=== PATIENT | male | born 1940 | race Caucasian/White ===

== ENCOUNTER 2017-06-10 20:14 | Emergency (ER) | payer MEDICARE, BC ==
[2017-06-10 21:38] VITALS: BP 132/105
--- NOTE | 2017-06-10 22:02 | EDM.PDOC ---
ED HPI GENERAL MEDICAL PROBLEM - General Chief Complaint: Abdominal Pain Stated Complaint: PAIN RI GROIN AREA Time Seen by Provider: 06/10/17 22:02 Source of Information: Reports: Patient, Family, Old Records, RN Notes Reviewed History Limitations: Reports: No Limitations - History of Present Illness INITIAL COMMENTS - FREE TEXT/NARRATIVE: brought by his son, but seen with his who arrived later Chief complaint Right groin pain History of present illness 77-year-old male with history spinal stenosis, for 3 years has been experiencing intermittent right groin pain. Spell today was lasting over 6 hours to the point that he was crying at home which prompted the family to bring him here. His episodes last anywhere from 30 minutes to several hours they do not occur daily and its inconsistent what brings them on, sometimes they're brought on by eating sometimes by a bowel movement and sometimes by movement. Never associated with nausea vomiting or fever or urinary symptoms. Never any diarrhea associated with this. He is being scheduled an appointment at [facility] in July, presumably to evaluate his back but also hoping that this would also help elucidate why he is having groin pain. It is tender to touch the area. He has been prescribed Vicodin for but he doesn't take it because of concerns about addiction. Through his weight to be seen here today, his pain has subsided and is now quite tolerable and he would be able to sleep. Spinal stenosis primarily affects the left leg, causing numbness and sometimes that leg will give way and he'll fall has not involved the right leg. Right Lower Abdomen Pain Score (Numeric/FACES): 10 - Related Data Allergies Allergy/AdvReac Type Severity Reaction Status Date / Time No Known Allergies Allergy Verified 06/10/17 21:34 Home Meds: Home Meds Aspirin [Em Chewable Aspirin] 81 mg PO DAILY 07/13/13 [History] Lisinopril 10 mg PO DAILY 07/13/13 [History] Omeprazole 20 mg PO DAILY 07/13/13 [History] Propafenone HCl [Rythmol] 150 mg PO TID 07/13/13 [History] Hydrocodone/Acetaminophen [Lorcet 5-325 mg Tablet] 1 each PO Q4H PRN 06/10/17 [ History] Past Medical History - Past Health History Medical/Surgical History: Denies Medical/Surgical History HEENT History: Reports: Impaired Vision Other HEENT History: wear glasses Cardiovascular History: Reports: Afib Gastrointestinal History: Reports: Diverticulosis, GI Bleed Genitourinary History: Reports: Prostate Disorder Musculoskeletal History: Reports: Back Pain, Chronic Other Musculoskeletal History: spinal stenosis Neurological History: Reports: Vertigo Hematologic History: Reports: Blood Transfusion(s) Oncologic (Cancer) History: Reports: Prostate - Infectious Disease History Infectious Disease History: Reports: Chicken Pox, Measles, Mumps - Past Surgical History GI Surgical History: Reports: Colonoscopy, EGD, Hernia, Abdominal Male Surgical History: Reports: Prostatectomy Social & Family History - Family History Family Medical History: Noncontributory - Tobacco Use Smoking Status *Q: Never Smoker Second Hand Smoke Exposure: No - Caffeine Use Caffeine Use: Reports: Tea - Recreational Drug Use Recreational Drug Use: No ED ROS GENERAL - Review of Systems Review Of Systems: See Below Constitutional: Reports: No Symptoms HEENT: Reports: No Symptoms Respiratory: Reports: No Symptoms Cardiovascular: Reports: No Symptoms GI/Abdominal: Reports: Abdominal Pain (right groin) : Reports: No Symptoms Musculoskeletal: Reports: Back Pain Skin: Reports: No Symptoms Neurological: Reports: Numbness (left leg), Weakness (left leg) Psychiatric: Reports: Anxiety Hematologic/Lymphatic: Reports: No Symptoms Immunologic: Reports: No Symptoms ED EXAM, GI/ABD - Physical Exam Exam: See Below Exam Limited By: No Limitations General Appearance: Alert, Anxious, Mild Distress, Other (vital signs show modest elevation of blood pressure otherwise normal, blood pressure has improved during his stay here) Head: Atraumatic, Normocephalic Respiratory/Chest: No Respiratory Distress Cardiovascular: Normal Peripheral Pulses GI/Abdominal Exam: Normal Bowel Sounds, Soft, No Distention, Tender (right at the inguinal ligament but no discrete swelling could be felt) (Male) Exam: No Hernia Extremities: Normal Inspection, Non-Tender Neurological: Alert, Oriented, Normal Cognition Psychiatric: Anxious Skin Exam: Warm, Dry, Intact, Normal Color, No Rash Course - Vital Signs Last Recorded V/S: Last Vital Signs Temp 35.4 C 06/10/17 21:45 Pulse 68 06/10/17 21:45 Resp 16 06/10/17 21:45 BP 132/105 H 06/10/17 21:45 Pulse Ox 96 06/10/17 21:45 - Re-Assessments/Exams Free Text/Narrative Re-Assessment/Exam: 06/10/17 22:51 77-year-old male with recurrent right inguinal pain of uncertain cause. Differential diagnosis includes femoral hernia, lymphadenopathy, neuropathy, ligamentous or muscular strain, or other causes. Further evaluation with general surgery recommended No treatment or investigations recommended here as pain has improved and it had numerous investigations previously Departure - Departure Time of Disposition: 22:29 Disposition: DC/Tfer to [facility] Condition: Fair Clinical Impression: Chronic pain of right inguinal region - Discharge Information Instructions: Muscle Pain, Adult Referrals: Boris Foreman MD [Primary Care Provider] - Forms: ED Department Discharge Additional Instructions: groin or inguinal area pain, recurrent The fact that the pain is localized there suggests it could come from a localized pinched nerve, small internal hernia, muscle strain, scar tissue or otherlocal cause. General surgeon should be consulted with to assess the area. Spinal stenosis could contribute to the pain in the area as well so seeing a spine doctor is also recommended Return to emergency if he developed fever, vomiting, or prolonged pain you cannot manage at home
== END 2017-06-10 22:45 | disposition home or self-care (01) ==
LOC: JP.ED 20:14
DX: R10.31 Right lower quadrant pain (principal); G89.29 Other chronic pain; I48.91 Unspecified atrial fibrillation; Z90.79 Acquired absence of other genital organ(s); Z98.890 Other specified postprocedural states; Z79.82 Long term (current) use of aspirin; Z79.899 Other long term (current) drug therapy; Z85.46 Personal history of malignant neoplasm of prostate
CPT/HCPCS: 99283; 99284

== ENCOUNTER 2020-12-29 07:03 | Day surgery (SDC) | payer MEDICARE ==
[2020-12-29] MEDS ORDERED: Sodium Chloride 0.9% 10 ML Syringe FLUSH PRN (07:30)
[2020-12-29 08:58] VITALS: BP 145/82; PULSE 93
--- NOTE | 2020-12-29 12:57 | OR ---
DATE OF PROCEDURE: 12/29/2020 SURGEON: Priscilla Anaya MD POSTOPERATIVE CARE: Postoperative care will be provided mainly at the [address] [place] [address] [facility] in conjunction with [facility]. PREOPERATIVE DIAGNOSIS: Cataract, right eye. POSTOPERATIVE DIAGNOSIS: Cataract, right eye. PROCEDURE: Phacoemulsification with intraocular lens placement, right eye. ANESTHESIA: Topical and intracameral. ESTIMATED BLOOD LOSS: Minimal. COMPLICATIONS: None. PATHOLOGY SPECIMENS: None. SURGICAL FINDINGS: None. INDICATION FOR PROCEDURE: The patient is an 80-year-old male with history of a visually significant cataract in the right eye, which interfered with activities of daily living. This consisted of a nuclear sclerosis cataract. Following careful discussion of the risks, benefits and alternatives to cataract extraction with intraocular lens placement including blindness and , the patient elected to proceed, and informed, written consent was obtained prior to the procedure. DESCRIPTION OF THE PROCEDURE: The patient was previously identified, and a jasson placed above the right eye. All sources, including the patient, indicated that the right eye was the correct eye. The patient was subsequently taken to the operating room where standard monitors were applied. The patient was then prepped and draped in the usual sterile fashion for ophthalmic surgery. Attention was first directed at the 12 o'clock position where a paracentesis port was fashioned. Shugar solution followed by Viscoat was instilled into the eye. Attention was then directed to the 8:30 position where a triplanar incision was made in a near-clear manner using a keratome. A continuous capsulorrhexis was then made using a combination of the cystotome and Utrata forceps. Hydrodissection was achieved using a balanced salt solution, and the lens rotated nicely. Phacoemulsification was then done using a modified [id number] technique without complication. Phaco time was 7.10 CDE. The remaining cortex was removed using the irrigation/aspiration handpiece. Provisc was then instilled into the eye. A Technis lens, model DCB00, at 21.0 Diopters was then placed in the capsular bag using an [place] injector. The remaining viscoelastic was removed using the irrigation/aspiration forceps. All wounds were then checked and found to be watertight. The lid speculum and drapes were removed. Maxitrol ointment was placed in the patient's right eye, and the eye was shielded. The patient tolerated the procedure well. The patient was instructed to follow up tomorrow. All needle and sponge counts were correct at the end of the procedure. There were no surgical findings. Priscilla Anaya MD /[id number]
== END 2020-12-29 09:00 | disposition home or self-care (01) ==
LOC: JP.SDS 07:03
PROVIDERS: ATTEND Ophthalmology
DX: H25.11 Age-related nuclear cataract, right eye (principal); I10 Essential (primary) hypertension; I48.91 Unspecified atrial fibrillation; G89.29 Other chronic pain; M54.9 Dorsalgia, unspecified; Z85.46 Personal history of malignant neoplasm of prostate; Z98.890 Other specified postprocedural states
CPT/HCPCS: V2632

== ENCOUNTER 2021-01-12 07:35 | Day surgery (SDC) | payer MEDICARE ==
[2021-01-12] MEDS ORDERED: Sodium Chloride 0.9% 10 ML Syringe FLUSH PRN (08:00)
[2021-01-12 08:52] VITALS: BP 154/91; PULSE 96
--- NOTE | 2021-01-12 14:31 | OR ---
DATE OF PROCEDURE: 01/12/2021 SURGEON: Priscilla Anaya MD POSTOPERATIVE CARE: Postoperative care will be provided mainly at the [address] [place] [address] [facility] in conjunction with [facility]. PREOPERATIVE DIAGNOSIS: Cataract, left eye. POSTOPERATIVE DIAGNOSIS: Cataract, left eye. PROCEDURE: Phacoemulsification with intraocular lens placement, left eye. ANESTHESIA: Topical and intracameral. ESTIMATED BLOOD LOSS: Minimal. COMPLICATIONS: None. PATHOLOGY SPECIMENS: None. SURGICAL FINDINGS: None. INDICATION FOR PROCEDURE: The patient is an 81-year-old male with history of a visually significant cataract in the left eye, which interfered with activities of daily living. This consisted of a nuclear sclerosis cataract. Following careful discussion of the risks, benefits and alternatives to cataract extraction with intraocular lens placement including blindness and , the patient elected to proceed, and informed, written consent was obtained prior to the procedure. DESCRIPTION OF THE PROCEDURE: The patient was previously identified, and a jasson placed above the left eye. All sources, including the patient, indicated that the left eye was the correct eye. The patient was subsequently taken to the operating room where standard monitors were applied. The patient was then prepped and draped in the usual sterile fashion for ophthalmic surgery. Attention was first directed at the 12 o'clock position where a paracentesis port was fashioned. Shugar solution followed by Viscoat was instilled into the eye. Attention was then directed to the 8:30 position where a triplanar incision was made in a near-clear manner using a keratome. A continuous capsulorrhexis was then made using a combination of the cystotome and Utrata forceps. Hydrodissection was achieved using a balanced salt solution, and the lens rotated nicely. Phacoemulsification was then done using a modified [id number] technique without complication. Phaco time was 7.81 CDE. The remaining cortex was removed using the irrigation/aspiration handpiece. Provisc was then instilled into the eye. A Technis lens, model DCB00, at 24.0 Diopters was then placed in the capsular bag using an [place] injector. The remaining viscoelastic was removed using the irrigation/aspiration forceps. All wounds were then checked and found to be watertight. The lid speculum and drapes were removed. Maxitrol ointment was placed in the patient's left eye, and the eye was shielded. The patient tolerated the procedure well. The patient was instructed to follow up tomorrow. All needle and sponge counts were correct at the end of the procedure. There were no surgical findings. Priscilla Anaya MD /[id number]
== END 2021-01-12 09:00 | disposition home or self-care (01) ==
LOC: JP.SDS 07:35
PROVIDERS: ATTEND Ophthalmology
DX: H26.9 Unspecified cataract (principal); I10 Essential (primary) hypertension; E78.5 Hyperlipidemia, unspecified; I48.91 Unspecified atrial fibrillation
CPT/HCPCS: V2632

== ENCOUNTER 2021-10-26 10:27 | Inpatient (IN) | payer MEDICARE ==
[2021-10-26] MEDS ORDERED: Sodium Chloride 0.9% 10 ML Syringe FLUSH PRN (11:07)
[2021-10-26] MEDS ORDERED: fentaNYL 100 MCG/2 ML SDV IVPUSH ONE (11:08)
--- NOTE | 2021-10-26 11:10 | EDM.PDOC ---
ED HPI GENERAL MEDICAL PROBLEM - General Chief Complaint: General Stated Complaint: GROIN PAIN Time Seen by Provider: 10/26/21 11:03 Source of Information: Reports: Patient, Family, RN Notes Reviewed History Limitations: Reports: No Limitations - History of Present Illness INITIAL COMMENTS - FREE TEXT/NARRATIVE: 81-year-old gentleman presents emergency department day complaint of right groin pain, he states he has had intermittent right groin pain for the last year and a half however today while he was getting out of the car sudden onset of pain rates it 8 out of 10 it is located in the right groin he does not have any nausea vomiting no shortness of breath or chest pain, he has had surgery for hernia repair in the past Right Groin Pain Score (Numeric/FACES): 3 - Related Data Allergies Allergy/AdvReac Type Severity Reaction Status Date / Time No Known Allergies Allergy Verified 01/12/21 07:52 Home Meds: Home Meds Aspirin [Em Chewable Aspirin] 81 mg PO DAILY 07/13/13 [History] Lisinopril 10 mg PO DAILY 07/13/13 [History] Omeprazole 20 mg PO DAILY 07/13/13 [History] Propafenone [Rythmol] 150 mg PO TID 12/27/20 [History] Past Medical History HEENT History: Reports: Cataract, Impaired Vision Other HEENT History: wear glasses Cardiovascular History: Reports: Afib, Hypertension Gastrointestinal History: Reports: Diverticulosis, GI Bleed Genitourinary History: Reports: Prostate Disorder Musculoskeletal History: Reports: Back Pain, Chronic, Other (See Below) Other Musculoskeletal History: spinal stenosis, low back pain. right knee pain Neurological History: Reports: Vertigo Hematologic History: Reports: Blood Transfusion(s) Oncologic (Cancer) History: Reports: Prostate - Infectious Disease History Infectious Disease History: Reports: Chicken Pox, Measles, Mumps - Past Surgical History Head Surgeries/Procedures: Reports: None HEENT Surgical History: Reports: Cataract Surgery, Tonsillectomy Cardiovascular Surgical History: Reports: None GI Surgical History: Reports: Colonoscopy, EGD, Hernia, Abdominal Male Surgical History: Reports: Prostatectomy Neurological Surgical History: Reports: Lumbar Spine, Spinal Fusion Musculoskeletal Surgical History: Reports: Other (See Below) Other Musculoskeletal Surgeries/Procedures:: back screws Social & Family History - Family History Family Medical History: No Pertinent Family History - Tobacco Use Tobacco Use Status *Q: Never Tobacco User - Caffeine Use Caffeine Use: Reports: Coffee ED ROS GENERAL - Review of Systems Review Of Systems: See Below Constitutional: Reports: No Symptoms Respiratory: Reports: No Symptoms Cardiovascular: Reports: No Symptoms GI/Abdominal: Reports: Abdominal Pain, Flatus. Denies: Nausea ED EXAM, GENERAL - Physical Exam Exam: See Below Exam Limited By: No Limitations General Appearance: Alert, WD/WN, No Apparent Distress Respiratory/Chest: No Respiratory Distress, Lungs Clear, Normal Breath Sounds, No Accessory Muscle Use, Chest Non-Tender Cardiovascular: Regular Rate, Rhythm, No Murmur GI/Abdominal: Normal Bowel Sounds, Soft, Tender (Right groin area), Mass (Right groin area) Course - Vital Signs Last Recorded V/S: Last Vital Signs Temp 97.1 F 10/26/21 10:54 Pulse 78 10/26/21 13:29 Resp 15 10/26/21 12:33 BP 120/89 10/26/21 13:29 Pulse Ox 94 L 10/26/21 13:29 - Orders/Labs/Meds Orders: Active Orders 24 hr Category Date Time Status Peripheral IV Care [RC] . DIRECTED Care 10/26/21 11:08 Active Lactated Ringers [Ringers, Lactated] 1,000 ml Med 10/26/21 11:15 Active IV ASDIRECTED Sodium Chloride 0.9% [Saline Flush] Med 10/26/21 11:07 Active 10 ml FLUSH ASDIRECTED PRN Peripheral IV Insertion Adult [OM.PC] Urgent Oth 10/26/21 11:07 Ordered Medication Orders Lactated Ringer's (Ringers, Lactated) 1,000 mls @ 500 mls/hr IV ASDIRECTED [facility] Last Admin: 10/26/21 11:22 Dose: 500 mls/hr Documented by: FITZASH Sodium Chloride (Sodium Chloride 0.9% 10 Ml Syringe) 10 ml FLUSH ASDIRECTED PRN PRN Reason: Keep Vein Open Labs: Laboratory Tests 10/26/21 10/26/21 10/26/21 Range/Units 11:23 11:23 11:23 WBC 6.2 (4.5-11.0) K/uL RBC 3.71 L (4.30-5.90) M/uL Hgb 12.0 (12.0-15.0) g/dL Hct 36.4 L (40.0-54.0) % MCV 98 (80-98) fL MCH 32 H (27-31) pg MCHC 33 (32-36) % Plt Count 236 (150-400) K/uL Neut % (Auto) 53.5 (36-66) % Lymph % (Auto) 36.2 (24-44) % [place] % (Auto) 7.1 H (2-6) % Eos % (Auto) 2.7 (2-4) % Baso % (Auto) 0.5 (0-1) % Sodium 147 (140-148) mmol/L Potassium 3.2 L (3.6-5.2) mmol/L Chloride 108 (100-108) mmol/L Carbon Dioxide 30 (21-32) mmol/L Anion Gap 12.2 (5.0-14.0) mmol/L BUN 16 (7-18) mg/dL Creatinine 0.9 (0.8-1.3) mg/dL Est Cr Clr Drug Dosing 63.28 mL/min Estimated GFR (MDRD) > 60 (>60) Glucose 110 H (74-106) mg/dL Lactic Acid 1.3 (0.4-2.0) mmol/L Calcium 8.0 L (8.5-10.1) mg/dL Total Bilirubin 0.5 (0.2-1.0) mg/dL AST 25 (15-37) U/L ALT 21 (12-78) U/L Alkaline Phosphatase 94 (46-116) U/L Total Protein 6.2 L (6.4-8.2) g/dL Albumin 3.5 (3.4-5.0) g/dL Globulin 2.7 (2.3-3.5) g/dL Albumin/Globulin Ratio 1.3 (1.2-2.2) Urine Color (YELLOW) Urine Appearance (CLEAR) Urine pH (5.0-8.0) Ur Specific [place] (1.008-1.030) Urine Protein (NEGATIVE) mg/dL Urine Glucose (UA) (NEGATIVE) mg/dL Urine Ketones (NEGATIVE) mg/dL Urine Occult Blood (NEGATIVE) Urine Nitrite (NEGATIVE) Urine Bilirubin (NEGATIVE) Urine Urobilinogen (0.2-1.0) EU/dL Ur Leukocyte Esterase (NEGATIVE) Urine RBC (0-5) Urine WBC (0-5) Ur Epithelial Cells Amorphous Sediment Urine Bacteria Urine Mucus 10/26/21 Range/Units 12:28 WBC (4.5-11.0) K/uL RBC (4.30-5.90) M/uL Hgb (12.0-15.0) g/dL Hct (40.0-54.0) % MCV (80-98) fL MCH (27-31) pg MCHC (32-36) % Plt Count (150-400) K/uL Neut % (Auto) (36-66) % Lymph % (Auto) (24-44) % [place] % (Auto) (2-6) % Eos % (Auto) (2-4) % Baso % (Auto) (0-1) % Sodium (140-148) mmol/L Potassium (3.6-5.2) mmol/L Chloride (100-108) mmol/L Carbon Dioxide (21-32) mmol/L Anion Gap (5.0-14.0) mmol/L BUN (7-18) mg/dL Creatinine (0.8-1.3) mg/dL Est Cr Clr Drug Dosing mL/min Estimated GFR (MDRD) (>60) Glucose (74-106) mg/dL Lactic Acid (0.4-2.0) mmol/L Calcium (8.5-10.1) mg/dL Total Bilirubin (0.2-1.0) mg/dL AST (15-37) U/L ALT (12-78) U/L Alkaline Phosphatase (46-116) U/L Total Protein (6.4-8.2) g/dL Albumin (3.4-5.0) g/dL Globulin (2.3-3.5) g/dL Albumin/Globulin Ratio (1.2-2.2) Urine Color Yellow (YELLOW) Urine Appearance Clear (CLEAR) Urine pH 7.5 (5.0-8.0) Ur Specific [place] 1.020 (1.008-1.030) Urine Protein Negative (NEGATIVE) mg/dL Urine Glucose (UA) Negative (NEGATIVE) mg/dL Urine Ketones Negative (NEGATIVE) mg/dL Urine Occult Blood Negative (NEGATIVE) Urine Nitrite Negative (NEGATIVE) Urine Bilirubin Negative (NEGATIVE) Urine Urobilinogen 1.0 (0.2-1.0) EU/dL Ur Leukocyte Esterase Negative (NEGATIVE) Urine RBC Not seen (0-5) Urine WBC 0-5 (0-5) Ur Epithelial Cells Not seen Amorphous Sediment Rare Urine Bacteria Not seen Urine Mucus Not seen Meds: Medications Generic Name Dose Route Start Last Admin Trade Name [place] PRN Reason Stop Dose Admin Lactated Ringer's 1,000 mls @ 500 mls/hr 10/26/21 11:15 10/26/21 11:22 Ringers, Lactated IV 500 mls/hr ASDIRECTED DARLENE Administration Sodium Chloride 10 ml 10/26/21 11:07 Sodium Chloride 0.9% 10 Ml Syringe FLUSH ASDIRECTED PRN Keep Vein Open Discontinued Medications Generic Name Dose Route Start Last Admin Trade Name Freq PRN Reason Stop Dose Admin Fentanyl 50 mcg 10/26/21 11:08 10/26/21 11:26 Fentanyl 100 Mcg/2 Ml Sdv IVPUSH 10/26/21 11:09 50 mcg ONETIME ONE Administration Sodium Chloride 81 mls @ 3.5 mls/sec 10/26/21 11:30 10/26/21 12:02 Normal Saline IV 10/26/21 11:31 3.5 mls/sec ASDIRECTED DARLENE Administration Iopamidol 136 ml 10/26/21 11:23 10/26/21 12:02 Iopamidol 612 Mg/Ml 500 Ml Multipack Bottle IV 10/26/21 11:24 136 ml ONETIME ONE Administration Sodium Chloride 10 ml 10/26/21 11:23 10/26/21 12:03 Sodium Chloride 0.9% 10 Ml Syringe FLUSH 10/26/21 11:24 10 ml ONETIME ONE Administration Departure - Departure Time of Disposition: 14:07 Disposition: Refer to Observation Condition: Fair Clinical Impression: Right inguinal hernia - Discharge Information Referrals: Boris Foreman MD [Primary Care Provider] - Forms: ED Department Discharge Sepsis Event Note (ED) - Focused Exam Vital Signs: Vital Signs Temp Pulse Resp BP Pulse Ox 10/26/21 13:29 78 120/89 94 L 10/26/21 12:33 79 15 122/79 93 L 10/26/21 10:54 97.1 F 88 16 153/105 H 98 - My Orders Last 24 Hours: My Active Orders 10/26/21 11:07 Sodium Chloride 0.9% [Saline Flush] 10 ml FLUSH ASDIRECTED PRN Peripheral IV Insertion Adult [OM.PC] Urgent 10/26/21 11:08 Peripheral IV Care [RC] . DIRECTED 10/26/21 11:15 Lactated Ringers [Ringers, Lactated] 1,000 ml IV ASDIRECTED - Assessment/Plan Last 24 Hours: My Active Orders 10/26/21 11:07 Sodium Chloride 0.9% [Saline Flush] 10 ml FLUSH ASDIRECTED PRN Peripheral IV Insertion Adult [OM.PC] Urgent 10/26/21 11:08 Peripheral IV Care [RC] . DIRECTED 10/26/21 11:15 Lactated Ringers [Ringers, Lactated] 1,000 ml IV ASDIRECTED Plan: Assessment Acuity = acute Site and laterality = right inguinal hernia with spontaneous resolution of bowel incarceration Etiology = unknown Manifestations = none Location of injury = Home Lab values = CBC CMP urinalysis unremarkable lactic acid within normal limits CT scan describes the hernia above Plan call discussed case Dr. Pichardo at 1400 he kindly agreed to evaluate patient in the hospital plan for surgical intervention for hernia repair This note was dictated using [employer] voice recognition software please call with any questions on syntax or grammar.
[2021-10-26] MEDS ORDERED: Lactated Ringers 1,000 ML IV SCH (11:15)
[2021-10-26] MEDS ORDERED: Iopamidol 612 MG/ML 500 ML Multipack Bottle IV ONE (11:23)
[2021-10-26] MEDS ORDERED: Sodium Chloride 0.9% 10 ML Syringe FLUSH ONE (11:23)
--- NOTE | 2021-10-26 13:35 | CT ---
Abdomen Pelvis w Cont CLINICAL HISTORY: Right groin mass COMPARISON: None. TECHNIQUE: Transverse scans were obtained from the base of the lungs to the pubic symphysis following oral contrast and IV infusion of contrast.Auto dosage reduction and iterative reconstructiontechniques employed. FINDINGS: The lung bases show some minimal pleural parenchymal scarring. There is diffuse gastric mucosal thickening in the body and fundus. There is also some thickening at the distal antrum and pylorus. The liver shows some diffuse fatty infiltration. No mass or biliary dilatation is seen.. The gallbladder is distended. No wall thickening is seen. The spleen has a normal size and shape. The pancreas shows no mass or inflammatory change. The adrenal glands appear normal bilaterally. . The kidneys show no mass or hydronephrosis. Small stones could be obscured by contrast The ureters have a normal course and caliber. The bladder has a normal contour. Patient has undergone prostate surgery. The aorta shows atheromatous plaque without aneurysm. There is no suspicious retroperitoneal adenopathy. There is a right inguinal hernia. There is a 3.2 x 2.3 x 3.2 cm low-attenuation oval density near the external ring of the canal.. Patient has had a previous left inguinal hernia repair. The small intestinal configuration is nonacute. There is gas and feces throughout the colon. The appendix is not definitively identified. There is sigmoid diverticulosis without evidence of diverticulitis. IMPRESSION: Right inguinal hernia. There is a 3.2 x 2.3 x 3.2 cm well demarcated low-attenuation mass in the inguinal canal just outside the external ring. This may represent an undistended testicle. Only one testicle is definitively identified in the scrotum but there is some soft tissue fullness in the very dependent portion Mucosal thickening in the gastric fundus and body may represent gastritis
[2021-10-26 16:16] LABS: CORONAVIRUS COVID-19 NAA NEGATIVE (NEGATIVE)
[2021-10-26] MEDS ORDERED: Acetaminophen 325 MG Tab PO PRN (16:42)
[2021-10-26] MEDS: Dextrose 5%-Lactated Ringers 1,000 ML IV SCH (17:06)
[2021-10-27] MEDS: Dextrose 5%-Lactated Ringers 1,000 ML IV SCH ×3 (01:12→23:05)
[2021-10-27] MEDS ORDERED: Bupivacaine 0.5%/EPINEPHrine 1:200,000 50 ML MDV ONE (06:38)
[2021-10-27] MEDS ORDERED: Diltiazem 180 MG Cap.CD PO ONE (07:30)
[2021-10-27] MEDS ORDERED: Acetaminophen 500 MG Tab PO ONE (07:30)
[2021-10-27] MEDS ORDERED: Pantoprazole 40 MG Tab.CR PO SCH (07:30)
[2021-10-27] MEDS ORDERED: ceFAZolin 2 GM in Premix Bag 1 BAG IV ONE (08:00)
[2021-10-27] MEDS ORDERED: fentaNYL 100 MCG/2 ML SDV ONE (08:11)
[2021-10-27] MEDS ORDERED: Midazolam 1 MG/ML 2 ML SDV ONE (08:11)
[2021-10-27] MEDS ORDERED: Propofol 200 MG/20 ML SDV ONE ×2 (08:12→11:02)
[2021-10-27] MEDS ORDERED: Lisinopril 10 MG Tab PO SCH (09:00)
[2021-10-27] MEDS ORDERED: Non-Formulary Medication 1 Each (Omeprazole [Omeprazole] 20 MG Cap.Sr) PO SCH (09:00)
[2021-10-27] MEDS ORDERED: Lactated Ringers 1,000 ML ONE (10:23)
[2021-10-27] MEDS ORDERED: Ketorolac 30 MG/ML SDV ONE (10:41)
[2021-10-27] MEDS ORDERED: hydrOXYzine HCL 100 MG/2 ML SDV IM ONE (12:00)
[2021-10-27] MEDS ORDERED: fentaNYL 100 MCG/2 ML SDV IVPUSH ONE (12:00)
[2021-10-27] MEDS ORDERED: traMADol 50 MG Tab PO PRN (13:06)
[2021-10-27] MEDS ORDERED: Ondansetron 4 MG/2 ML SDV IVPUSH PRN (13:09)
[2021-10-27] MEDS: Lisinopril 10 MG Tab PO SCH (13:43)
[2021-10-27] MEDS: Pantoprazole 40 MG Tab.CR PO SCH (13:44)
[2021-10-27] MEDS: Acetaminophen 325 MG Tab PO SCH ×2 (13:44→19:52)
[2021-10-27] MEDS ORDERED: HYDROmorphone 0.5 MG/0.5 ML Syringe IVPUSH PRN (14:00)
[2021-10-27] MEDS ORDERED: HYDROmorphone 1 MG/ML Syringe IV PRN (14:00)
[2021-10-27] MEDS: ceFAZolin 2 GM in Premix Bag 1 BAG IV SCH ×2 (16:09→23:06)
[2021-10-27] MEDS: Ibuprofen 600 MG Tab PO SCH ×2 (17:13→23:08)
[2021-10-28] MEDS: Acetaminophen 325 MG Tab PO SCH ×2 (02:01→08:45)
[2021-10-28 02:11] VITALS: PULSE 83
[2021-10-28] MEDS: Ibuprofen 600 MG Tab PO SCH (06:01)
[2021-10-28] MEDS: Pantoprazole 40 MG Tab.CR PO SCH (07:43)
[2021-10-28] MEDS: ceFAZolin 2 GM in Premix Bag 1 BAG IV SCH (08:12)
[2021-10-28 08:13] VITALS: BP 134/75
[2021-10-28] MEDS: Lisinopril 10 MG Tab PO SCH (08:46)
[2021-10-28] MEDS ORDERED: Aspirin 81 MG Tab.Chew PO SCH (09:00)
[2021-10-28] MEDS ORDERED: Diltiazem 180 MG Cap.CD PO SCH (09:00)
--- NOTE | 2021-10-30 12:21 | DISCH ---
FINAL DIAGNOSIS: Incarcerated right inguinal hernia containing loops of small bowel. SECONDARY DIAGNOSES: 1. History of atrial fibrillation. 2. History of hypertension. 3. History of diverticulosis. 4. Chronic back pain related to spinal stenosis. 5. Previous left inguinal hernia repair. 6. Status post prostatectomy. 7. Status post spinal fusion. OPERATIVE PROCEDURE: This was done on 10/27/2021, right inguinal exploration with: 1. Repair of incarcerated right inguinal hernia with mesh. 2. Division of right ilioinguinal and iliohypogastric nerves. SUMMARY: This is an 81-year-old presenting with what appears to be a longstanding inguinal hernia on the right side. He has had episodes of what sounds like transient incarceration several times over the past few weeks and months. He presented to the emergency room with a densely incarcerated right inguinal hernia. CT scan confirmed a likely bowel within the hernia and this was subsequently then reduced. He was admitted overnight for observation and underwent inguinal hernia repair along with division of the above-noted nerves on 10/27/2021. He will be discharged today (10/28/2021) and he is feeling quite a bit better. He will continue his home medications plus Tylenol and ibuprofen as needed for pain. Follow up with Dr. Pichardo at [facility] on 11/08/2021. /[id number]
--- NOTE | 2021-11-06 10:25 | OR ---
DATE OF PROCEDURE: 10/27/2021 SURGEON: Joel Pichardo MD PREOPERATIVE DIAGNOSIS: Incarcerated right inguinal hernia. POSTOPERATIVE DIAGNOSES: 1. Incarcerated indirect right inguinal hernia. 2. Right ilioinguinal and iliohypogastric nerves at risk for scar entrapment. OPERATIVE PROCEDURES: Right inguinal exploration with: 1. Repair of incarcerated right inguinal hernia with mesh (44638). 2. Division of right ilioinguinal nerve (09899). 3. Division of right iliohypogastric nerve (81301). ANESTHESIA: Local plus IV sedation. INDICATIONS FOR PROCEDURE: An 81-year-old male presenting with a large right inguinal hernia. This has not been reducible and has been associated with some episodes of probable bowel incarceration transiently. Given this, the patient and wished to proceed with a repair. At this point, the plan is to proceed with an open repair using a mesh plug technique. Potential risks of the procedure including bleeding, infection, injury to underlying viscera, problems with the hernia recurring or the mesh becoming infected were all reviewed along with the remote possibility of cardiopulmonary, septic, or hemorrhagic complications leading to . Additionally, that we will often divide some nerves in the vicinity of the mesh repair to avoid chronic postoperative neuropathic pain, which results in some areas of cutaneous anesthesia. With this, the patient and wished to proceed. DETAILS OF PROCEDURE: The patient was taken to the operating room, and after IV sedation was administered, the abdomen and groin areas were prepped and draped and the right inguinal area was anesthetized with 1% lidocaine mixed with Marcaine. A standard right inguinal incision was made and carried down through the skin and subcutaneous tissue. The external oblique aponeurosis was then identified and divided. This was quite thinned out medially as expected. Flaps of the external oblique aponeurosis were then raised superiorly and inferiorly, and the cord structures were mobilized upward. Eventually, the hernia sac was dissected away from the cord structures. The sac was very thickened, particularly in the area as it entered the scrotum, associated with recent episodes of bowel incarceration within it. The sac was eventually dissected back to the level of the internal ring, where it was turned in. Initially, an extra-large mesh plug was placed into the defect and this was affixed to the Anjum ligament medially and underside of the conjoined tendon medially, superiorly, and laterally as well as inferiorly to the shelving portion of the inguinal ligament with 0 Ethibond sutures. There still appeared to be a weakness in the far lateral aspect of the inguinal floor. Given this, a medium mesh plug was placed in that defect. This was affixed to the extra-large mesh plug where it came across that and into the superior, lateral, and inferior aspects of the conjoined tendon, and the shelving portion of the inguinal ligament again with the 0 Vicryl sutures. This appeared to satisfactorily occlude all the areas of herniation. The conjoined tendon was then approximated to the shelving portion of the inguinal ligament up to the point of the internal ring. At this point, the iliohypogastric nerve and ilioinguinal nerves were both felt to be likely subject to scar entrapment as the flat portion of the mesh system would be lying over them leaving both the divided sites in the far lateral aspect of the incision. The flat portion of the mesh plug system was placed across the inguinal floor and sutured lateral to the internal ring with 4-0 Vicryl stitch and tacked to the pubic tubercle with a titanium tacking screw. At that point, the cord structures were replaced and the external oblique aponeurosis was approximated with 3-0 Vicryl stitch as was the subcutaneous tissue. The skin was then closed with tawanna. The patient was taken to the recovery room in satisfactory condition. Joel Pichardo MD /[id number]
== END 2021-10-28 09:30 | disposition home or self-care (01) | DRG 352 ==
LOC: JP.ED 10:27 → JP.MS 14:09 → OBSVTOIN 10-27 07:00
PROVIDERS: ADMIT Surgery; ATTEND Surgery
PROC: 0YU50JZ Supplement Right Inguinal Region with Synthetic Substitute, Open Approach (ICD-10-PCS; 2021-10-27)
PROC: 018B0ZZ Division of Lumbar Nerve, Open Approach (ICD-10-PCS; 2021-10-27)
PROC: 018B0ZZ Division of Lumbar Nerve, Open Approach (ICD-10-PCS; 2021-10-27)
PROC: 3E02340 Introduction of Influenza Vaccine into Muscle, Percutaneous Approach (ICD-10-PCS; principal; 2021-10-28)
DX: K40.90 Unilateral inguinal hernia, without obstruction or gangrene, not specified as recurrent (principal); K40.30 Unilateral inguinal hernia, with obstruction, without gangrene, not specified as recurrent; I10 Essential (primary) hypertension; I48.91 Unspecified atrial fibrillation; K57.90 Diverticulosis of intestine, part unspecified, without perforation or abscess without bleeding; N42.9 Disorder of prostate, unspecified; M48.00 Spinal stenosis, site unspecified; Z85.46 Personal history of malignant neoplasm of prostate; Z79.82 Long term (current) use of aspirin; Z79.899 Other long term (current) drug therapy; Z20.822 Contact with and (suspected) exposure to COVID-19; H54.7 Unspecified visual loss; M54.9 Dorsalgia, unspecified; G89.29 Other chronic pain; Z90.79 Acquired absence of other genital organ(s); Z98.49 Cataract extraction status, unspecified eye; Z98.890 Other specified postprocedural states
CPT/HCPCS: 0241U; 36415; 74177; 80053; 81001; 83605; 85025; 88302; 90662; 96374; 99284; A9270-GY; C1713; C1781; G0008; G0378; J0690; J1885; J2020; J2250; J2704; J3010; J3410; J3490; J7120; J7121; Q9967